=== PATIENT | female | born 1945 | race Caucasian/White ===

== ENCOUNTER 2021-12-30 08:25 | Emergency (ER) | payer OTHER, MEDICARE, SELFPAY ==
--- NOTE | ~2021-12-30 | XR_ITS ---
EXAMINATION: XR knee RT 3V DATE: 12/30/2021 09:02 INDICATION: Right knee pain TECHNIQUE: Three views of the right knee were obtained. COMPARISON: None. FINDINGS: Alignment is normal. No fracture or osteochondral lesion. 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 No joint effusion/synovitis. There is soft tissue swelling of the leg. IMPRESSION: 1. Soft tissue swelling without acute osseous abnormality. Reviewed, dictated and finalized at location B. [facility] [employer]
[2021-12-30 08:48] VITALS: BP 153/81; PULSE 95; RESP 16; TEMP 36.9; O2SAT 97
--- NOTE | 2021-12-30 09:15 | ED.LOWEXIN ---
HPI - Extremity Injury (Lower) General Chief Complaint: Extremity Injury, Lower Stated Complaint: fall/ riight knee pain Time Seen by Provider: 12/30/21 08:33 Source: patient Mode of arrival: ambulatory Limitations: no limitations History of Present Illness HPI Narrative: Do is a 76-year-old female patient presenting to clinic today with complaints of right knee pain after falling on a ramp. She reports she was walking up to a salon and she tripped and fell and landed on her right knee. She has a very small abrasion to the right knee with a burning sensation. She denies any increase in pain when walking. She denies any crepitus or feeling as though the knee is going to give out Related Data Allergies Allergy/AdvReac Type Severity Reaction Status Date / Time No Known Allergies Allergy Unverified 02/01/16 11:06 Review of Systems Review of Systems: Pertinent positives per HPI. Patient denies any fever, chills, rash, headache, visual changes, dizziness, cough, runny nose, sore throat, shortness of breath, chest pain, palpitations, nausea, vomiting, diarrhea, constipation, abdominal pain, or any urinary issues. [facility] Comments At the time of my signature, I reviewed and agree with the nursing past medical, surgical, social, and family history. There is no relevant family history pertinent to the patient complaint. Exam Narrative: General: Well-developed, morbidly obese, in no apparent distress Head: Normocephalic, atraumatic. Cardio: Regular rate and rhythm, s1 and s2 normal, no murmur appreciated. Resp: Clear to auscultation bilaterally, no rhonchi, rales, wheezing or rubs. Musculoskeletal: No deformity, tender to palpation over the proximal tib-fib, small abrasion to the inferior anterior knee, grossly normal range of motion, no crepitus felt with flexion and extension of the knee, muscle strength strong and equal, peripheral pulse strong, no edema, no cyanosis, waddling gait and station Course Course Emergency Course: Portions of this record may have been created with voice recognition software. Level of Care: Express Care Visit Vital Signs Vital signs: Vital Signs Temperature 36.9 C 12/30/21 08:48 Pulse Rate 95 12/30/21 08:48 Respiratory Rate 16 12/30/21 08:48 Blood Pressure 153/81 H 12/30/21 08:48 Pulse Oximetry 97 12/30/21 08:48 Oxygen Delivery Room Air 12/30/21 08:48 Temperature 36.9 C 12/30/21 08:48 Pulse Rate 95 12/30/21 08:48 Respiratory Rate 16 12/30/21 08:48 Blood Pressure 153/81 H 12/30/21 08:48 Pulse Oximetry 97 12/30/21 08:48 Oxygen Delivery Room Air 12/30/21 08:48 Vital signs reviewed MDM - Extremity Injury (Lower) MDM Narrative Medical decision making narrative: At the time of visit patient is resting on the exam chair. X-ray was performed and was negative for any sign of fracture or malalignment of the right knee. She does have some soft tissue swelling. Supportive measures were discussed with the patient she voiced understanding of discharge instructions and agrees to treatment plan Differential Diagnosis Differential diagnosis: Likely acute internal derangement of knee and other ( knee fracture or malalignment, knee pain, soft tissue injury, contusion) Discharge Plan Discharge Clinical Impression: Contusion of knee, right Qualifiers: Encounter type: initial encounter Qualified Code(s): S80.01XA - Contusion of right knee, initial encounter Patient Disposition: Home, Self-Care Condition: Stable Instructions: Antibiotic Form, Knee Pain (ED) Additional Instructions: x-ray is negative for any sign of fracture or malalignment of the right knee or tib-fib. notable soft tissue swelling rest, ice, and elevate apply Jeremy wrap as discussed may take Tylenol/ Motrin as needed for pain follow-up with your PCP in 3-5 days if symptoms persist or sooner if they worsen Follow-up/Referrals: Mana,YANG Hartman [Primary Care P
== END 2021-12-30 09:18 | disposition home or self-care (01) ==
PROVIDERS: Emergency Provider Nurse Practitioner Family; PCP Registered Nurse
DX: S80.01XA Contusion of right knee, initial encounter (principal); W01.0XXA Fall on same level from slipping, tripping and stumbling without subsequent striking against object, initial encounter; I10 Essential (primary) hypertension; M19.90 Unspecified osteoarthritis, unspecified site; M10.9 Gout, unspecified; E03.9 Hypothyroidism, unspecified
CPT/HCPCS: 73562; 99213; G0463

== ENCOUNTER 2022-01-05 14:07 | Outpatient (CLI) | payer MEDICARE, SELFPAY ==
--- NOTE | ~2022-01-05 | US_ITS ---
EXAMINATION: US venous doppler LE RT DATE: 01/05/2022 14:49 INDICATION: Acute right leg pain and swelling TECHNIQUE: Yeung scale images without and with compression and Doppler images of the right lower extre mity veins were obtained. COMPARISON: None FINDINGS: The right common femoral vein, profunda femoral vein, femoral vein, popliteal vein, peronea l trunk, posterior tibial veins, and greater saphenous vein are patent. 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 IMPRESSION: 1. Patent right lower extremity veins. No evidence of deep venous thrombosis. 2. Domínguez's cyst. Reviewed, dictated and finalized at location F. IER
== END 2022-01-05 14:08 | disposition home or self-care (01) ==
PROVIDERS: PCP Registered Nurse; Visit Provider Registered Nurse
DX: M25.561 Pain in right knee (principal); M79.604 Pain in right leg; M79.89 Other specified soft tissue disorders; M71.21 Synovial cyst of popliteal space [Baker], right knee
CPT/HCPCS: 93971

== ENCOUNTER 2023-07-13 13:46 | Outpatient (CLI) | payer MEDICARE, SELFPAY ==
--- NOTE | ~2023-07-13 | US_ITS ---
EXAMINATION: US carotid duplex BI DATE: 07/13/2023 14:36 INDICATION: Dizziness. TECHNIQUE: Grayscale, color Doppler, and pulsed Doppler images of the cervical carotid arteries were obtained. The degree of vessel stenosis is placed in one of the following categories: normal, <50%, 5 0-69%, >=70% but less than near-occlusion, near-occlusion, or total occlusion. Note that percent sten osis relative to normal distal artery lumen diameter is indirectly measured from velocity measurement s as described by Mehul, et al. Radiology 2003; 229:340-346. COMPARISON: None. FINDINGS: RIGHT: The right common carotid artery (CCA) peak systolic velocity (PSV) is 69 cm/s. The right internal car otid artery (ICA) PSV is 39 cm/s. The right ICA end-diastolic velocity (EDV) is 12 cm/s. The right IC A/CCA PSV ratio is 0.6. Grayscale and color Doppler images yield an estimate of <50% diameter reducti on from plaque in the ICA. There is antegrade flow in the right vertebral artery. LEFT: The left CCA PSV is 73 cm/s. The left ICA PSV is 46 cm/s. The left ICA EDV is 15 cm/s. The left ICA/C CA PSV ratio is 0.6. Grayscale and color Doppler images yield an estimate of <50% diameter reduction from plaque in the ICA. There is antegrade flow in the left vertebral artery. IMPRESSION: 1. <50% stenosis in the right internal carotid artery. 2. <50% stenosis in the left internal carotid artery. Reviewed, dictated and finalized at location A.
== END 2023-07-13 13:47 | disposition home or self-care (01) ==
LOC: ANHIMG 13:46
PROVIDERS: PCP Registered Nurse; Visit Provider Registered Nurse
DX: R42 Dizziness and giddiness (principal); I65.23 Occlusion and stenosis of bilateral carotid arteries
CPT/HCPCS: 93880

== ENCOUNTER 2023-08-01 09:19 | Outpatient (CLI) | payer MEDICARE, SELFPAY ==
--- NOTE | 2023-08-04 16:13 | P.PCNHOL_ITS ---
Holter/Event Monitor Holter/Event Monitor Date of procedure: 08/04/23 Holter/Event Procedure: 48 Hr Holter Monitor Diagnosis: Dizziness Indications: Dizziness Image/Tracing Quality: Favorable Finding: The basic rhythm is sinus with normal AR QRS and QT interval. AR interval is at the upper limit of normal. The heart rate varies from a minimum of 40 to a maximum of 115 the average rate was 61. There were no significant pauses the longest RR interval recorded was 1.7 seconds. Supraventricular ectopic activity consists of infrequent PACs with PACs occurring at a rate of just over 1 complex per hour. There were no runs of SVT and there were no examples of atrial fibrillation Ventricular ectopic activity was extremely rare only 5 PVCs were seen during the entire 48 hour The patient submitted a diary in which no entries were made, presumably there were no symptoms Conclusion: Unremarkable 48 hour Holter monitor Matt Hawkins MD [facility]
== END 2023-08-01 09:20 | disposition home or self-care (01) ==
LOC: ANHCARD 09:21
PROVIDERS: PCP Registered Nurse; Visit Provider Registered Nurse
DX: R42 Dizziness and giddiness (principal)
CPT/HCPCS: 93225; 93226